=== PATIENT | male | born 1985 | race Caucasian/White ===

== ENCOUNTER 2019-01-12 18:05 | Emergency (ER) | payer BC, SELFPAY ==
[2019-01-12 18:36] VITALS: BP 98/56; PULSE 84; RESP 18; TEMP 36.7; O2SAT 100; BMI 20.7
[2019-01-12] MEDS: FLUORESCEIN 1 MG STRIP EYE-RIGHT (20:15)
[2019-01-12] MEDS: PROPARACAINE 0.5% OPHTH SOL 2 DROPS EYE-RIGHT (20:15)
[2019-01-12] MEDS: TET,DIPH,PERTUSS(ACELL),VAC/PF 0.5 ML SYRINGE IM (20:27)
--- NOTE | 2019-01-12 21:03 | ED_ITS ---
HPI - Eye Problem <RASHMI Garcia - Last Filed: 01/12/19 21:45> General Chief complaint: Eye Problems Stated complaint: right eye abrasion x3 days Time Seen by Provider: 01/12/19 19:43 Source: patient Mode of arrival: Ambulatory Limitations: no limitations History of Present Illness HPI Narrative: This is a 33-year-old male, occasional smoker, who presents to ED with right eye foreign body sensation and watery eyes for last 3 days when he woke up from sleep. Patient initially was evaluated at walk-in clinic today and was referred to emergency room after questionable foreign body was seen during exam. Patient denies vision change, purulent discharges, severe eye pain. Patient denies fever, chills, nausea/vomiting. Patient reports this foreign body sensation increases with moving around his eyes. Patient predominantly uses glasses more than contact lenses. Unsure of last tetanus immunization. Related Data Previous Rx's Medication Instructions Recorded erythromycin 0.5 inch EYE-RIGHT Q6H 5 Days #1 01/12/19 gram Allergies Allergy/AdvReac Type Severity Reaction Status Date / Time No Known Drug Allergies Allergy Verified 01/12/19 18:36 Review of Systems <RASHMI Garcia - Last Filed: 01/12/19 21:45> Review of Systems ROS Unobtainable: All systems reviewed & are unremarkable except as noted in HPI and below PFSH <RASHMI Garcia - Last Filed: 01/12/19 21:45> Social History Smoking Status: Current some day smoker Social History Smoking Status: Current some day smoker Exam <RASHMI Garcia - Last Filed: 01/12/19 21:45> Narrative Exam Narrative: General appearance: well developed, well nourished, in no acute distress. Head: normocephalic, atraumatic, no scalp lesions, non-tender. Nose: nares patent. Oral: mucosa moist. Neck/Thyroid: neck supple, full range of motion, no visible masses. Skin: no suspicious rashes, lesions over visible areas. Warm and dry. Heart: no clubbing, no cyanosis, no edema. Lungs: Breathing even and unlabored. No stridor. No accessory muscles used. Chest: normal shape and expansion. Abdomen: non-obese, non-distended. Neurologic: alert and oriented. Cognitive exam, CELLAR PUMPER and PNS grossly intact on informal exam. Psych: good eye contact, normal affect. Initial Vital Signs Initial Vital Signs: Vital Signs Temperature 98.1 F 01/12/19 18:36 Pulse Rate 84 01/12/19 18:36 Respiratory Rate 18 01/12/19 18:36 Blood Pressure 98/56 L 01/12/19 18:36 Pulse Oximetry 100 01/12/19 18:36 Eyes Visual Melton: normal visual melton by confrontation Alignment and Position: alignment normal and position normal Periorbital: periorbital findings normal Eyelids: eyelids normal (Mild redness and swelling on right upper eyelid) Conjunctivae: conjunctival abnormality right conjunctival injection diffuse (Mild) Sclera: sclerae normal Cornea: corneas abnormal on the right fluorescein used and abrasion diffuse (outer upper corner) and fluorescein used Pupils: PERRL, accommodation normal and pupil size (3mm) EOM: EOM intact bilaterally Direct ophthalmoscopy: normal light reflex Other: IOP 8 on R eye <Paula Michaud DO - Last Filed: 01/13/19 05:54> Initial Vital Signs Initial Vital Signs: Vital Signs Temperature 98.1 F 01/12/19 18:36 Pulse Rate 84 01/12/19 18:36 Respiratory Rate 18 01/12/19 18:36 Blood Pressure 98/56 L 01/12/19 18:36 Pulse Oximetry 100 01/12/19 18:36 Procedures <[facility] LoP - Last Filed: 01/12/19 21:45> Foreign Body EYE Time Out performed: Yes Location: eye (R) Topical anesthetic used: proparacaine Foreign body: other (uncertain of FB but a very tiny dark spot was seen once with direct bright light) Evidence of corneal penetration: No Technique: irrigation and cotton tip swab Procedure performed under: direct visualization with magnification Post-procedure medication: ophthalmic antibiotic and topical anesthetic Patient tolerated procedure: well Scores <[facility] Last Filed: 01/12/19 21:45> GCS [place] coma scale eye opening: Spontaneous Kp coma scale verbal response: Orientated Kp coma scale motor response: Obey commands [place] coma scale total score: 15 Course <[place] RASHMI Hernandez - Last Filed: 01/12/19 21:45> Orders Ordered: Discontinued Medications Diphtheria/Tetanus/Acell Pertussis (Adacel) 0.5 ml IM .ONCE ONE Stop: 01/12/19 20:12 Last Admin: 01/12/19 20:27 Dose: 0.5 ml Documented by: JOSÉ MIGUELEED Erythromycin (Erythromycin Ophth Oint) 1 applic EYE-RIGHT NOW ONE Stop: 01/12/19 20:54 Last Admin: 01/12/19 21:14 Dose: 1 applic Documented by: FLORENCE Fluorescein Sodium (Ful-Adrianna) 1 mg EYE-RIGHT NOW ONE Stop: 01/12/19 20:12 Last Admin: 01/12/19 20:15 Dose: 1 mg Documented by: FLORENCE Proparacaine HCl (Parcaine 0.5% Ophth Lulú) 2 drops EYE-RIGHT NOW ONE Stop: 01/12/19 20:12 Last Admin: 01/12/19 20:15 Dose: 2 drop Documented by: FLORENCE Vital Signs Vital signs: Vital Signs - 8 hr 01/12/19 18:36 Temperature 98.1 F Pulse Rate 84 Respiratory Rate 18 Blood Pressure 98/56 L Pulse Oximetry 100 <Paula Michaud DO - Last Filed: 01/13/19 05:54> Orders Ordered: Discontinued Medications Diphtheria/Tetanus/Acell Pertussis (Adacel) 0.5 ml IM .ONCE ONE Stop: 01/12/19 20:12 Last Admin: 01/12/19 20:27 Dose: 0.5 ml Documented by: JOSÉ MIGUELEED Erythromycin (Erythromycin Ophth Oint) 1 applic EYE-RIGHT NOW ONE Stop: 01/12/19 20:54 Last Admin: 01/12/19 21:14 Dose: 1 applic Documented by: FLORENCE Fluorescein Sodium (Ful-Adrianna) 1 mg EYE-RIGHT NOW ONE Stop: 01/12/19 20:12 Last Admin: 01/12/19 20:15 Dose: 1 mg Documented by: FLORENCE Proparacaine HCl (Parcaine 0.5% Ophth Lulú) 2 drops EYE-RIGHT NOW ONE Stop: 01/12/19 20:12 Last Admin: 01/12/19 20:15 Dose: 2 drop Documented by: FLORENCE Vital Signs Vital signs: Vital Signs - 8 hr 01/12/19 18:36 Temperature 98.1 F Pulse Rate 84 Respiratory Rate 18 Blood Pressure 98/56 L Pulse Oximetry 100 [facility] - Eye Problem <RASHMI Garcia - Last Filed: 01/12/19 21:45> Differential Diagnosis Differential diagnosis: Likely corneal abrasion, conjunctivitis and other (corneal foreign body) Medical Records Attestation: I reviewed the patient's medical records. [facility] Narrative Medical decision making narrative: This is a 33-year-old male, unsure of last tetanus immunization, with right eye foreign body/scratches sensation for last 3 days when he woke up in the morning. Patient uses contact lenses but predominant a use glasses. 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 Patient's tetanus was updated today. Physical exam indicated mild conjunctival abrasion on right upper outer corner eye where he feels the foreign body sensation since fluorescein had uptaken mildly. With direct visualization with the light, initially very tiny dark spot was seen on the cornea of the middle of eye. Please see procedural note on eye foreign body removal using CTA and normal saline irrigation with 60 ml. The foreign body was not seen on CTA and not under the inner upper eye lid. Patient was medicated with erythromycin eye ointment prior discharged to home and continue to use for next 5 days for q.i.d. does. Visual acuity was obtained my nursing staff with OD 20/40 and OS 20/30 with glasses. IOP of 8. Patient advised not to use contact lenses until he was evaluated and cleared by appellate court clerk. Return precautions were discussed with the patient and patient agrees with treatment plan and no further questions were expressed at this time. Patient also informed that he could use [id number] Tylenol and or Motrin as needed for discomfort. Discharge Plan Departure Patient Disposition: Home Clinical Impression: Corneal abrasion Qualifiers: Encounter type: initial encounter Laterality: right Qualified Code(s): S05.01XA - Injury of conjunctiva and corneal abrasion without foreign body, right eye, initial encounter Discharge Date/Time: 01/12/19 21:31 Instructions: DI for Corneal Abrasion, DI for Corneal Foreign Body-Eye Activity Restrictions/Additional Instructions: You have been diagnosed with [mild cornea abrasion and possible cornea foreign body. Tdap vaccination has been updated today and this is good for 10 years]. What to do: *Take your medications as directed. Please use the rest of erythromycin eye ointment 4 times a day for next 5 days *Follow up with the ophthalmology Dr. Pineda on Monday and your primary care provider in 2-3 days, call for an appointment. Let them know you were seen in the ED and that we asked you to be seen in follow up. *Return to ED if you have any new, worsening, or concerning symptoms, such as [decreased vision, severe pain, redness and warmth spreading to face, fever or increasing eye discharge or any acute concerns]. Prescriptions: New erythromycin 5 mg/gram (0.5 %) ointment 0.5 inch EYE-RIGHT Q6H 5 Days Qty: 1 RF: 0 Referrals: Ruslan Pineda MD [Physician] -
[2019-01-12] MEDS: ERYTHROMYCIN OPHTH 1 GM OINT 1 APPLIC EYE-RIGHT (21:14)
[2019-01-12 21:31] VITALS: BP 106/62; PULSE 63; RESP 14; O2SAT 100
== END 2019-01-12 21:31 | disposition home or self-care (01) ==
PROVIDERS: Emergency Provider Nurse Practitioner Family
DX: S05.01XA Injury of conjunctiva and corneal abrasion without foreign body, right eye, initial encounter (principal); Z23 Encounter for immunization
CPT/HCPCS: 90471; 99283; 90715